=== PATIENT | male | born 1960 | race Two or more races ===

== ENCOUNTER 2018-04-24 05:24 | Inpatient (IN) | payer OTHER ==
[~2018-04-24] VITALS: Ht 167.6 cm; Wt 63.5 kg
--- NOTE | 2018-04-24 10:45 | NUR ---
ADMITTED FROM [facility] A 57 YO MALE WITH ADM DX OF CHEST PAIN AND SOB VIA AMBULANCE. NO SS OF SEVERE CHEST PAIN OR SOB UPON ARRIVAL IN ROOM. ALERT AND ORIENTED X3 . PATIENT SOMEWHAT ANXIOUS ABOUT WHAT IS GOING ON. ORIENTED TO THE FLOOR , POLICIES AND PROCEDURE FOR CHEST PAIN AND WHAT IS GOING TO BE DONE. ROUTINE ASSESSMENT INITIATED, MD NOTIFIED OF ADMISSION AND NEED FOR ADM ORDERS.
[2018-04-24 10:51] VITALS: BP 140/93
[2018-04-24] MEDS ORDERED: GLIP5TAB13 PO (11:25)
[2018-04-24] MEDS ORDERED: ALBU18HF2 INH (11:25)
[2018-04-24] MEDS ORDERED: ERGO500040 PO (11:25)
[2018-04-24] MEDS ORDERED: ALLO100T PO (11:25)
[2018-04-24] MEDS ORDERED: AMLO10TA7 PO (11:25)
[2018-04-24] MEDS ORDERED: CODE118S4 PO (11:25)
[2018-04-24] MEDS ORDERED: LOVA40TA2 PO (11:35)
[2018-04-24] MEDS ORDERED: MONT10TA25 PO (11:35)
[2018-04-24] MEDS ORDERED: BUDE10.2 INH (11:35)
[2018-04-24] MEDS ORDERED: METF-440 PO (11:35)
[2018-04-24] MEDS ORDERED: FLUT16SP BNOSTRILS (11:35)
[2018-04-24] MEDS ORDERED: BENZ200C53 PO (11:35)
[2018-04-24] MEDS ORDERED: PANT40TA4 PO (11:35)
[2018-04-24] MEDS ORDERED: LOSA1TAB39 PO (11:35)
[2018-04-24] MEDS ORDERED: MAGNESIUM HYDROXIDE 30 ML LIQUID UDC PO PRN (14:15)
[2018-04-24] MEDS ORDERED: HYDROCODONE/APAP 5-325MG TABLET PO PRN (14:15)
[2018-04-24] MEDS ORDERED: GUAIFENESIN/CODEINE 5 ML LIQUID UDC PO PRN (14:15)
[2018-04-24] MEDS ORDERED: ALBUTEROL SULFATE 2.5 MG/3 ML NEBU NEB PRN (14:15)
[2018-04-24] MEDS ORDERED: ONDANSETRON 4 MG/2 ML VIAL IV PRN (14:15)
[2018-04-24] MEDS ORDERED: ACETAMINOPHEN 325 MG TABLET PO PRN (14:15)
[2018-04-24 15:00] VITALS: BP 113/74
[2018-04-24] MEDS ORDERED: LEVOFLOXACIN 500 MG/D5W 500 MG in PREMIXED 1 EACH IV SCH (15:00)
--- NOTE | 2018-04-24 15:19 | NUR ---
SEEN BY DR TOMLINSON WITH ORDERS.PATIENT REMAINS ON SR DENIES ANY DISCOMFORT BUT DRY COUGH
[2018-04-24] MEDS ORDERED: MONTELUKAST SODIUM 10 MG TABLET PO SCH (18:00)
--- NOTE | 2018-04-24 19:00 | NUR ---
Received patient, awake, not in distress, denies any pain/discomforts at this time. HL on left AC intact and patent. No s/s of infiltration noted. Safety measure and fall precaution maintained. Continue care as planned.
[2018-04-24 20:00] VITALS: BP 111/62
[2018-04-25] VITALS: BP 111/71
[2018-04-25 04:00] VITALS: BP 95/60
[2018-04-25 06:36] LABS: BASOPHILS % (AUTO) 0.4 % (0.0-2.0); EOSINOPHILS # (AUTO) 0.2 K/uL (0.0-0.7); EOSINOPHILS % (AUTO) 1.8 % (0.0-7.0); HEMATOCRIT 40.5 % (36.7-47.1); HEMOGLOBIN 13.6 g/dL (12.5-16.3); LYMPHOCYTES # (AUTO) 1.2 K/uL (20.0-40.0); LYMPHOCYTES % (AUTO) 11.7 % (20.5-51.5); MEAN CORPUSCULAR HEMOGLOBIN 27.9 uug (23.8-33.4); MEAN CORPUSCULAR HGB CONC 34 g/dL (32.5-36.3); MEAN CORPUSCULAR VOLUME 82.8 fL (73.0-96.2); MONOCYTES # (AUTO) 0.7 K/uL (2.0-10.0); MONOCYTES % (AUTO) 6.7 % (0.0-11.0); NEUTROPHILS # (AUTO) 8.5 K/uL (1.8-8.9); NEUTROPHILS % (AUTO) 79.4 % (38.5-71.5); PLATELET COUNT (AUTO) 319 K/uL (152-348); RED BLOOD CELL COUNT(AUTO) 4.89 MIL/uL (4.06-5.63); WHITE BLOOD COUNT (AUTO) 10.7 K/uL (3.6-10.2)
--- NOTE | 2018-04-25 06:49 | NUR ---
Shift End Report: Uneventful night. Slept good. No complaint presented. All needs attended and met. Continue current plan of care.
[2018-04-25 06:54] LABS: BILIRUBIN,TOTAL 0.5 mg/dL (0.2-1.0); PHOSPHOROUS 3.8 mg/dL (2.5-4.9); POTASSIUM 3.6 mmol/L (3.5-5.1); TOTAL PROTEIN, SERUM 7.1 g/dL (6.4-8.2)
[2018-04-25] MEDS ORDERED: PANTOPRAZOLE SODIUM 40 MG TABLET.DR PO SCH (07:00)
[2018-04-25 07:02] LABS: THYROID STIMULATING HORMONE 1.923 mIU/mL (0.358-3.740)
--- NOTE | 2018-04-25 07:10 | NUR ---
RECEIVED PATIENT IN BED AWAKE, ON HOTEL RESERVATION AGENT. NO C/O PAIN NOTED, AMBULATORY AND AMBULATED TO THE BATHROOM . BED ON LOW POSITION AND SIDE RAIL UP X2. WILL CONTINUE TO MONITOR.
[2018-04-25] MEDS ORDERED: DEXTROSE 50% 50 ML DISP.SYRIN IV PRN (07:45)
[2018-04-25] MEDS ORDERED: INSULIN REGULAR, HUMAN 300 UNIT/3 ML VIAL SQ PRN (07:45)
[2018-04-25] MEDS ORDERED: glipiZIDE 5 MG TABLET PO SCH (07:45)
[2018-04-25] MEDS: BLOOD SUGAR DIAGNOSTIC 1 EACH STRIP VI SCH ×2 (08:34→12:07)
[2018-04-25] MEDS ORDERED: HYDROCHLOROTHIAZIDE 25 MG TABLET PO SCH (09:00)
[2018-04-25] MEDS ORDERED: AMLODIPINE 10 MG TABLET PO SCH (09:00)
[2018-04-25] MEDS ORDERED: ASPIRIN 81 MG TAB.CHEW PO SCH (09:00)
[2018-04-25] MEDS ORDERED: LOSARTAN POTASSIUM 50 MG TABLET PO SCH (09:00)
[2018-04-25] MEDS ORDERED: FLUTICASONE PROP NASAL SPRAY 16 GM BOTTLE NS SCH (09:00)
[2018-04-25] MEDS ORDERED: Medication Not On Formulary EA (Losartan/Hydrochlorothiazide (Losartan-Hctz 100-25 Mg Ta PO SCH (09:00)
[2018-04-25] MEDS ORDERED: ALLOPURINOL 100 MG TABLET PO SCH (09:00)
[2018-04-25 11:37] VITALS: BP 110/73
[2018-04-25] MEDS ORDERED: AZIT250T13 PO (11:47)
[2018-04-25] MEDS ORDERED: DEXT15SY3 PO (11:47)
--- NOTE | 2018-04-25 14:45 | NUR ---
discharge note: Patient discharge to home, via private car with family, provided with discharge instructions and medication prescription , patient verbalized understanding. Patient on fair condition, no SOB noted , no acute distress noted, and no c/o pain noted. IV and ID band removed. Instruct patient to follow up with the PCP within 1 week. Belongings accounted for and questions and concerns addresses
[2018-05-01] MEDS ORDERED: ERGOCALCIFEROL 50,000 UNIT CAPSULE PO SCH (09:00)
== END 2018-04-25 14:45 | disposition home or self-care (01) | DRG 202 ==
LOC: TELE 10:49
PROVIDERS: ADMIT Hospitalist; ATTEND Internal Medicine
DX: J20.9 Acute bronchitis, unspecified (principal); J45.901 Unspecified asthma with (acute) exacerbation; B96.89 Other specified bacterial agents as the cause of diseases classified elsewhere; Z87.891 Personal history of nicotine dependence; E11.65 Type 2 diabetes mellitus with hyperglycemia; Z79.84 Long term (current) use of oral hypoglycemic drugs; M10.9 Gout, unspecified; Z79.899 Other long term (current) drug therapy; K80.20 Calculus of gallbladder without cholecystitis without obstruction; I70.0 Atherosclerosis of aorta; K76.0 Fatty (change of) liver, not elsewhere classified; I10 Essential (primary) hypertension; E78.5 Hyperlipidemia, unspecified; J98.4 Other disorders of lung; I07.1 Rheumatic tricuspid insufficiency
CPT/HCPCS: 36415; 70030-TC; 83735; 84100; 84443; 85025; 93307; G0378; J1815; J1956; J3535; J7050; J8499